=== PATIENT | female | born 1975 | race Caucasian/White ===

== ENCOUNTER → 2017-02-08 | Outpatient (CLI) | payer BC, OTHER ==
[2017-02-08 20:46] LABS: FREE T4 1.07 NG/DL (0.76-1.46)
[2017-02-08 20:59] LABS: MEAN CORPUSCULAR HEMOGLOBIN 29.5 pg (27.0-33.0); MEAN CORPUSCULAR VOLUME 92.3 fl (80.0-96.0); RED CELL DISTRIBUTION WIDTH 13.2 % (11.5-14.5); WHITE BLOOD COUNT 4.2 K/mm3 (4.0-10.0)
== END ==
LOC: M SMT 15:00
PROVIDERS: ATTEND Obstetrics & Gynecology
DX: N92.0 Excessive and frequent menstruation with regular cycle (principal)

== ENCOUNTER → 2017-02-19 | Outpatient (CLI) | payer BC, OTHER ==
--- NOTE | 2017-02-19 17:25 | REP ---
Pelvic sonography: History: Dysfunctional uterine bleeding. Findings: Transabdominal and transvaginal scanning are performed. Uterine dimensions are slightly prominent at 10.9 x 5.4 x 6.4 cm. Endometrial echo is 1.5 cm thick and centrally placed. A scar is seen in the anterior aspect of the inferior myometrium. No focal uterine mass is seen. No free fluid noted. There is a 2.5 x 1.8 x 2.7 cm simple cyst in the left ovary. The left ovary measures 3.9 x 3.0 x 4.2 cm inclusive of this simple cyst. The right ovary measures 4.0 x 2.0 x 3.6 cm and is unremarkable Impression: Mildly prominent size uterus. 2.7 cm simple cyst left ovary. Prior scar seen in the lower uterine segment myometrium. Signed by Rebel Panda MD 02/19/2017 07:38 P
== END ==
LOC: M SMT 14:42
PROVIDERS: ATTEND Obstetrics & Gynecology
DX: N92.0 Excessive and frequent menstruation with regular cycle (principal)